=== PATIENT | male | born 2000 | race Caucasian/White ===

== ENCOUNTER 2022-01-15 09:59 | Emergency (ER) | payer BC, SELFPAY ==
--- NOTE | ~2022-01-15 | US_ITS ---
US scrotum doppler INDICATION: Right testicular pain for 24 hours. TECHNIQUE: Testicular sonogram utilizing grayscale and color Doppler FINDINGS: The testes are normal in size and appearance. No focal lesions are seen. The right testes measures 4.3 x 3.1 x 2.4 cm centimeters, and the left testis measures 4.5 x 3.3 x 2 cm cm. There is n ormal vascular flow to both testes. There is a right epididymal cyst measuring 5 mm. Left epididymis within normal limits. There is no varicocele or hydrocele. IMPRESSION: 1. 5 mm right epididymal cysts. Otherwise, unremarkable testicular ultrasound.. Reviewed, dictated and finalized at location A. IMPRESSION: 1. 5 mm right epididymal cysts. Otherwise, unremarkable testicular ultrasound. .
[2022-01-15 10:13] VITALS: BP 124/85; PULSE 67; RESP 16; TEMP 36.8; O2SAT 100
--- NOTE | 2022-01-15 10:21 | ED.MALEGU ---
HPI - Male Genitourinary General Chief complaint: Urogenital-Male <Jacque Landa PA-C - Last Filed: 01/15/22 12:33> Stated complaint: testicular pain <Jacque Landa PA-C - Last Filed: 01/15/22 12:33> Time Seen by Provider: 01/15/22 10:10 <Jacque Landa PA-C - Last Filed: 01/15/22 12:33> Source: patient <Jacque Landa PA-C - Last Filed: 01/15/22 12:33> Mode of arrival: ambulatory <Jacque Landa PA-C - Last Filed: 01/15/22 12:33> Limitations: no limitations <Jacque Landa PA-C - Last Filed: 01/15/22 12:33> History of Present Illness HPI Narrative: This is a 21-year-old male that presents to the emergency department for right-sided testicular pain present over the last day. Reports the pain is constant in nature. He has been taking ibuprofen with some improvement. No recent injury or trauma to the area. Denies fever, dysuria, or hematuria. <Jacque Landa PA-C - Last Filed: 01/15/22 12:33> Related Data Allergies/Adverse reactions: Allergies Allergy/AdvReac Type Severity Reaction Status Date / Time No Known Drug Allergies Allergy Unknown Unverified 05/30/14 22:38 <Jacque Landa PA-C - Last Filed: 01/15/22 12:33> Review of Systems Review of Systems: CONSTITUTIONAL: Denies fever GASTROINTESTINAL: Denies abdominal pain, nausea, vomiting GENITOURINARY: Denies dysuria or hematuria. SKIN: Denies rash <Jacque Landa PA-C - Last Filed: 01/15/22 12:33> All systems reviewed & are unremarkable except as noted in HPI and below <Jacque Landa PA-C - Last Filed: 01/15/22 12:33> [facility] Past Medical History Medical History: Medical History (Updated 01/15/22 @ 12:31 by Jacque Landa PA-C) No active medical problems <Jacque Landa PA-C - Last Filed: 01/15/22 12:33> Social History Social History: Social History (Updated 01/15/22 @ 10:24 by Jacque Landa PA-C) Smoking status: Never smoker <Jacque Landa PA-C - Last Filed: 01/15/22 12:33> Exam Narrative: GENERAL: Well-appearing, well-nourished, and in no acute distress. HEAD: Normocephalic, atraumatic. EYES: EOMI. CHEST: Clear to auscultation. No respiratory distress. No wheezes rales or rhonchi HEART: Regular rate and rhythm. No murmur heard. Normal peripheral pulses. ABDOMEN: Soft, nontender, nondistended, normal active bowel sounds. EXTREMITIES: Normal range of motion. No edema. SKIN: Warm, dry, no rash. NEURO: No focal deficits. Alert and oriented x3. PSYCH: Normal mood and affect MALE GENITAL: Normal external genitalia. No abnormal urethral discharge noted. Tender to palpation of the right testicle without edema or erythema noted <Jacque Landa PA-C - Last Filed: 01/15/22 12:33> Course FACILITIES MAINTENANCE MANAGER/PA Physician Supervision For this encounter, I have reviewed the [facility] documentation, treatment plan and medical decision making: I was available for consultation as needed. [] <Cruz Lockett DO - Last Filed: 01/15/22 18:54> Vital Signs Vital signs: Vital Signs Temperature 98.2 F 01/15/22 10:13 Pulse Rate 67 01/15/22 10:13 Respiratory Rate 16 01/15/22 10:13 Blood Pressure 124/85 01/15/22 10:13 Pulse Oximetry 100 01/15/22 10:13 Oxygen Delivery Room Air 01/15/22 10:13 Temperature 98.2 F 01/15/22 10:13 Pulse Rate 72 01/15/22 12:59 Respiratory Rate 18 01/15/22 12:59 Blood Pressure 105/71 01/15/22 12:59 Pulse Oximetry 99 01/15/22 12:59 Oxygen Delivery Room Air 01/15/22 10:13 <Jacque Landa PA-C - Last Filed: 01/15/22 12:33> Vital Signs Temperature 98.2 F 01/15/22 10:13 Pulse Rate 67 01/15/22 10:13 Respiratory Rate 16 01/15/22 10:13 Blood Pressure 124/85 01/15/22 10:13 Pulse Oximetry 100 01/15/22 10:13 Oxygen Delivery Room Air 01/15/22 10:13 Temperature 98.2 F 01/15/22 10:13 Pulse Rate 72 01/15/22 12:59 Respiratory Rate 18 01/15/22 12:59 Blood Pressure 105/71 01/15/22 12
[2022-01-15 10:44] LABS: Add Urine Microscopic? NO; Appearance Urine Clear (Clear); Bilirubin Urine Negative (Negative); Blood Urine Negative (Negative); Color Urine Yellow (Yellow); Glucose Urine UA Negative (Negative); Ketones Urine Negative (Negative); Leukocyte Esterase Ur Negative LEU/UL (Negative); Nitrate Urine Negative (Negative); Protein Urine Negative (Negative); Specific Grav Ur 1.025 (1.001-1.035); Urobilinogen Urine 0.2 mg/dL (<2.0)
[2022-01-15 12:59] VITALS: BP 105/71; PULSE 72; RESP 18; O2SAT 99
== END 2022-01-15 13:06 | disposition home or self-care (01) ==
PROVIDERS: Physician Assistant; Emergency Provider Emergency Medicine
DX: N50.3 Cyst of epididymis (principal)
CPT/HCPCS: 76870; 81003; 93976; 99284